=== PATIENT | female | born 1990 ===

== ENCOUNTER 2021-06-13 06:00 | Day surgery (SDC) | payer OTHER ==
[2021-06-13] MEDS ORDERED: PROTONIX20 MG PO (08:53)
== END 2021-06-13 10:30 | disposition home or self-care (01) ==
LOC: AMB-ENDOS 06:00
PROVIDERS: ATTEND Surgery
DX: D13.1 Benign neoplasm of stomach (principal); K44.9 Diaphragmatic hernia without obstruction or gangrene; Z20.822 Contact with and (suspected) exposure to COVID-19

== ENCOUNTER 2021-07-07 16:59 | Emergency (ER) | payer OTHER ==
[~2021-07-07] VITALS: Ht 160 cm; Wt 88.9 kg
[~2021-07-07 16:59] MED LIST: PROTONIX20 MG PO
[2021-07-07] MEDS ORDERED: SYNTHROID88 MCG (17:18)
[2021-07-07] MEDS ORDERED: NORFLEX100MG PO (18:58)
[2021-07-07] MEDS ORDERED: KETO10TA2 PO (18:58)
== END 2021-07-07 19:15 | disposition home or self-care (01) ==
LOC: ER 16:59
DX: M54.2 Cervicalgia (principal); M25.512 Pain in left shoulder